=== PATIENT | female | born 1950 | race Caucasian/White ===

== ENCOUNTER 2019-01-01 05:42 | Day surgery (SDC) | payer BC, MEDICARE ==
[2019-01-01] MEDS ORDERED: Dextrose 5%-Lactated Ringers 1,000 ML IV SCH (06:30)
[2019-01-01] MEDS ORDERED: fentaNYL 100 MCG/2 ML SDV ONE (07:11)
[2019-01-01] MEDS ORDERED: Propofol 200 MG/20 ML SDV ONE (07:11)
[2019-01-01] MEDS ORDERED: Midazolam 1 MG/ML 2 ML SDV ONE (07:12)
[2019-01-01] MEDS ORDERED: Glycopyrrolate 0.2 MG/ML 2 ML SDV IVPUSH ONE (07:15)
--- NOTE | 2019-01-01 09:25 | OR ---
DATE OF PROCEDURE: 01/01/2019 SURGEON: Manuel Acevedo MD PREOPERATIVE DIAGNOSIS: History of Akins esophagus. POSTOPERATIVE DIAGNOSES: 1. History of Akins esophagus with minimal recurrent inflammation at EG junction and an intact Iraj fundoplication. 2. Mild patchy antral gastritis and proximal duodenitis. OPERATIVE PROCEDURE: Esophagogastroduodenoscopy with; 1. Biopsies of antrum for CLOtest. 2. Biopsies of esophagogastric junction for histologic evaluation. INDICATIONS FOR PROCEDURE: This is a 68-year-old status post Iraj fundoplication who did have had Akins esophagus without dysplasia in the past and is to undergo a followup endoscopy for surveillance of the Akins esophagus. Presently, she is off any antisecretory medication and is doing well with the fundoplication. Potential risks of the procedure including bleeding and perforation were discussed, and the patient wishes to proceed. DETAILS OF PROCEDURE: The patient was taken to the operating room and placed in a left lateral decubitus position. IV sedation was administered, after which the upper GI endoscope was passed orally through the length of the esophagus into the stomach with retroflexion view of the fundus, thereafter through the pyloric channel and into the proximal duodenum. Findings included normal hypopharynx, larynx, upper esophageal sphincter. At the EG junction, there was very mild redness and edema at the esophagogastric junction mucosal line. There was some upward extension of the EG junction line consistent with history of Akins esophagus. There is no plaquing, stricturing, or other signs of neoplasia, and the Iraj fundoplication appeared to be appropriately placed and intact. Within the stomach, there was some patchy redness in the prepyloric area and a very slight redness and edema involving the duodenal bulb with duodenum normalizing beyond that point. At this point, biopsies were obtained from the antrum and sent for CLOtest for H. pylori. Multiple biopsies were then obtained from the esophagogastric junction, sent for histologic evaluation. Minimal bleeding from biopsy sites was seen and the patient was taken to the recovery room in satisfactory condition. Assuming there is no progression of dysplasia on today's biopsies, her next exam for surveillance of Akins esophagus would be approximately in 2 years. Manuel Acevedo MD /[id number]
[2019-01-01 09:55] VITALS: BP 154/86; PULSE 67
== END 2019-01-01 10:17 | disposition home or self-care (01) ==
LOC: JP.SDS 05:42
PROVIDERS: ATTEND Surgery
DX: K22.70 Barrett's esophagus without dysplasia (principal); K29.70 Gastritis, unspecified, without bleeding; K29.80 Duodenitis without bleeding; K22.8 Other specified diseases of esophagus; K21.9 Gastro-esophageal reflux disease without esophagitis; I10 Essential (primary) hypertension; E78.00 Pure hypercholesterolemia, unspecified; Z91.048 Other nonmedicinal substance allergy status
CPT/HCPCS: 43239; 87081; J2250; J2704; J3010; J3490; J7042

== ENCOUNTER 2021-07-28 08:35 | Emergency (ER) | payer MEDICARE ==
[2021-07-28 08:40] VITALS: BP 195/85; PULSE 69
[2021-07-28] MEDS ORDERED: LORazepam 2 MG/ML SDV IVPUSH ONE (08:53)
== END 2021-07-28 10:30 | disposition home or self-care (01) ==
LOC: JP.ED 08:35
DX: S82.831A Other fracture of upper and lower end of right fibula, initial encounter for closed fracture (principal); I10 Essential (primary) hypertension; E78.00 Pure hypercholesterolemia, unspecified; K21.9 Gastro-esophageal reflux disease without esophagitis; E66.9 Obesity, unspecified; Z68.39 Body mass index [BMI] 39.0-39.9, adult; Z79.82 Long term (current) use of aspirin; Z79.899 Other long term (current) drug therapy; W10.9XXA Fall (on) (from) unspecified stairs and steps, initial encounter
CPT/HCPCS: 29515; 73610-26-RT; 73610-RT; 96374; 99282; 99283-25; J2060

== ENCOUNTER 2022-02-19 06:27 | Day surgery (SDC) | payer MEDICARE ==
[2022-02-19] MEDS ORDERED: Propofol 200 MG/20 ML SDV ONE (07:30)
[2022-02-19] MEDS ORDERED: Lactated Ringers 1,000 ML IV SCH (07:30)
[2022-02-19] MEDS ORDERED: fentaNYL 100 MCG/2 ML SDV ONE (07:30)
[2022-02-19 09:00] VITALS: BP 124/72; PULSE 60
== END 2022-02-19 09:02 | disposition home or self-care (01) ==
LOC: JP.SDS 06:27
PROVIDERS: ATTEND Student in an Organized Health Care Education/Training Program
DX: K29.50 Unspecified chronic gastritis without bleeding (principal); K31.7 Polyp of stomach and duodenum; K20.90 Esophagitis, unspecified without bleeding; K29.80 Duodenitis without bleeding; I10 Essential (primary) hypertension; Z87.19 Personal history of other diseases of the digestive system; Z91.048 Other nonmedicinal substance allergy status; Z79.899 Other long term (current) drug therapy
CPT/HCPCS: 43239; 87081; J2704; J3010; J7120; 88305

== ENCOUNTER 2024-09-10 00:40 | Emergency (ER) | payer MEDICARE ==
[2024-09-10 01:15] LABS: BASOPHILS ABSOLUTE AUTO 0.06 K/uL (0.00-0.10); BASOPHILS PERCENT AUTO 0.5 % (0.1-1.3); EOSINOPHILS ABSOLUTE AUTO 0.26 K/uL (0.00-0.40); EOSINOPHILS PERCENT AUTO 2.1 % (0.0-5.4); IMMATURE GRAN ABSOLUTE AUTO 0.04 K/uL (0.00-0.23); IMMATURE GRAN PERCENT AUTO 0.3 % (0.0-0.7); LYMPHOCYTES ABSOLUTE AUTO 1.53 K/uL (0.8-3.3); LYMPHOCYTES PERCENT AUTO 12.3 % (11.4-47.7); MONOCYTES ABSOLUTE AUTO 0.42 K/uL (0.20-0.90); MONOCYTES PERCENT AUTO 3.4 % (3.3-12.6); NEUTROPHILS ABSOLUTE AUTO 10.12 K/uL (1.0-7.6); NEUTROPHILS PERCENT AUTO 81.4 % (40.0-78.1); PLATELET COUNT,PLT 181 K/uL (130-375); RED BLOOD CELL COUNT 4.31 M/uL (3.77-5.24); WHITE BLOOD CELL COUNT,WBC 12.4 K/uL (3.2-11.0)
[2024-09-10] MEDS: Ondansetron 4 MG/2 ML SDV IVPUSH ONE (01:17)
[2024-09-10] MEDS: Ketorolac 15 MG/ML SDV IVPUSH ONE (01:19)
[2024-09-10 01:21] LABS: APPEARANCE,URINE CLEAR (CLEAR); GLUCOSE,URINE 100 mg/dL (NEGATIVE); OCCULT BLOOD,URINE SMALL (NEGATIVE)
[2024-09-10 01:32] LABS: EPITHELIAL CELLS,URINE RARE
[2024-09-10 01:34] LABS: A/G RATIO 1.1 (1.2-2.2); ALANINE AMINOTRANSFERASE,ALT 33 U/L (12-78); ASPARTATE AMNIOTRANSFERASE,AST 37 U/L (15-37); BILIRUBIN TOTAL 0.6 mg/dL (0.2-1.0); BLOOD UREA NITROGEN,BUN 21 mg/dL (7-18); CARBON DIOXIDE,CO2 25 mmol/L (21-32); CHLORIDE,CL 100 mmol/L (100-108); CREATININE 0.8 mg/dL (0.6-1.0); ESTIMATED GFR 78 mL/min (>60); GLUCOSE RANDOM 182 mg/dL (74-106); POTASSIUM,K 4.1 mmol/L (3.6-5.2); PROTEIN TOTAL,TP 8.5 g/dL (6.4-8.2); SODIUM,NA 138 mmol/L (140-148)
[2024-09-10] MEDS: Iopamidol 612 MG/ML 100 ML Bottle IV SCH (01:46)
[2024-09-10] MEDS: Sodium Chloride 0.9% 10 ML Syringe FLUSH PRN (01:46)
[2024-09-10 03:07] VITALS: PULSE 78
[2024-09-10 03:08] VITALS: BP 162/68
== END 2024-09-10 02:55 | disposition home or self-care (01) ==
LOC: JP.ED 00:40
DX: N13.2 Hydronephrosis with renal and ureteral calculous obstruction (principal); E78.00 Pure hypercholesterolemia, unspecified; I10 Essential (primary) hypertension; K21.9 Gastro-esophageal reflux disease without esophagitis; Z91.048 Other nonmedicinal substance allergy status; Z79.899 Other long term (current) drug therapy; Z79.82 Long term (current) use of aspirin
CPT/HCPCS: 36415; 74177; 80053; 81001; 85025; 96361; 96374; 96375; 99284; J1885; J2405; J7030; Q9967